=== PATIENT | female | born 1945 | race Caucasian/White ===

== ENCOUNTER 2019-03-24 08:35 | Day surgery (SDC) ==
--- NOTE | 2019-03-10 08:20 | EKG Report ---
Test Performed on : 03/10/2019 08:03:04 AM Test Reason : PAT Blood Pressure : / mmHG Vent. Rate : 084 BPM Atrial Rate : 084 BPM P-R Int : 146 ms QRS Dur : 086 ms QT Int : 382 ms P-R-T Axes : 077 076 074 degrees QTc Int : 451 ms Normal sinus rhythm. Normal ECG No previous ECGs available Confirmed by Jeffrey BECKFORD, Venancio Floyd ([id number]) on 03/10/2019 8:46:45 AM
[2019-03-10 08:41] LABS: URINE SOURCE CLEAN CATCH
[2019-03-10 09:45] LABS: HEMATOCRIT 48.1 % (37.0-47.0); HEMOGLOBIN 15.3 g/dL (12.0-16.0); MCV 88.4 FL (81-99); RBC 5.44 XMIL (4.2-5.4); WBC 12.36 X1000 (4.8-10.8)
[2019-03-10 09:46] LABS: BASO# 0.07 X1000 (0.0-0.2); BASO% 0.6 % (0.0-0.8); EOS# 0.31 X1000 (0.0-0.7); EOS% 2.5 % (0.0-10.0); IMM GRAN# 0.02 X1000 (0.0-0.04); IMM GRAN% 0.2 % (0.0-0.5); LYMPH# 3.74 X1000 (1.2-3.4); LYMPH% 30.3 % (20.5-51.1); MCH 28.1 PG (27-31); MCHC 31.8 g/dL (33-37); MONO# 0.68 X1000 (0.11-0.59); MONO% 5.5 % (1.7-9.3); MPV 10.8 FL (7.4-10.4); NEUT# 7.54 X1000 (1.4-6.5); NEUT% 60.9 % (42.2-75.2); PLT 299 X1000 (130-400); RDW 14.7 % (11.5-14.5)
[2019-03-10 09:50] LABS: BILIRUBIN URINE NEGATIVE (NEGATIVE); BLOOD URINE NEGATIVE (NEGATIVE); COLOR YELLOW; GLUCOSE URINE NEGATIVE (NEGATIVE); KETONE URINE TRACE mg/dL (NEGATIVE); LEUKOCYTES URINE NEGATIVE (NEGATIVE); NITRITE URINE NEGATIVE (NEGATIVE); PH URINE 5.5; PROTEIN URINE TRACE mg/dL (NEGATIVE); SP GRAVITY URINE 1.026; TURBIDITY URINE TURBID (CLEAR); UROBILINOGEN URINE 2 mg/dL (NORMAL)
[2019-03-10 09:54] LABS: INR 0.99; PROTIME 13.2 Seconds (11.0-16.0); UR EPITHELIAL CELLS >10 /HPF (<10); URINE BACTERIA NEGATIVE /HPF; URINE RBC <10 /HPF (<10); URINE WBC <10 /HPF (<10)
[2019-03-10 09:56] LABS: HEMOGLOBIN A1C 5.5 % (4.8-6.0)
[2019-03-10 10:17] LABS: AGAP 14; BUN 14 mg/dL (8-22); CHLORIDE 101 mmol/L (98-107); COSMO 285; CREATININE 0.9 mg/dL (0.5-0.9); ESTIMATED GFR > 60; GLUCOSE 116 mg/dL (70-104); POTASSIUM 3.7 mmol/L (3.5-5.1); SODIUM 142 mmol/L (136-145); TCO2 27 mmol/L (25-35)
[2019-03-24] MEDS ORDERED: ZOCOR PO SCH (09:00)
[2019-03-24] MEDS ORDERED: REGLAN ONE (09:24)
[2019-03-24] MEDS ORDERED: PEPCID ONE (09:24)
[2019-03-24] MEDS ORDERED: COLACE ONE (09:24)
[2019-03-24] MEDS ORDERED: KEFZOL 1 GM/D5W 1 GM/50 ML IVPB ONE (09:25)
[2019-03-24] MEDS ORDERED: CELEBREX ONE (09:25)
[2019-03-24] MEDS ORDERED: LYRICA ONE (09:25)
[2019-03-24] MEDS ORDERED: LR 1,000 ML ONE (09:25)
[2019-03-24] MEDS ORDERED: XYLOCAINE-MPF 2% ONE (09:32)
[2019-03-24] MEDS ORDERED: DECADRON ONE (09:32)
[2019-03-24] MEDS ORDERED: ROBINUL ONE (09:32)
[2019-03-24] MEDS ORDERED: ZOFRAN ONE (09:32)
[2019-03-24] MEDS ORDERED: DIPRIVAN 1% ONE (09:33)
[2019-03-24] MEDS ORDERED: OFIRMEV 1000 MG/ISOTONIC SOLN 1,000 MG/100 ML BOTTLE ONE (09:33)
[2019-03-24] MEDS ORDERED: FENTANYL ONE (09:33)
[2019-03-24] MEDS ORDERED: DURAMORPH ONE (10:51)
[2019-03-24] MEDS ORDERED: TORADOL ONE (10:51)
[2019-03-24] MEDS ORDERED: SODIUM CHLORIDE 0.9% ONE (10:52)
[2019-03-24] MEDS ORDERED: VANCOMYCIN ONE (10:52)
[2019-03-24] MEDS ORDERED: EXPAREL 1.3% ONE (10:52)
[2019-03-24] MEDS ORDERED: CYKLOKAPRON 1,000 MG/NS 2,000 MG/200 ML IVPB ONE (10:52)
[2019-03-24] MEDS ORDERED: SENSORCAINE 0.25%/EPI 1:200,000 ONE (10:52)
[2019-03-24 12:38] LABS: URINE SOURCE CATH
[2019-03-24 12:48] LABS: BILIRUBIN URINE NEGATIVE (NEGATIVE); BLOOD URINE NEGATIVE (NEGATIVE); COLOR YELLOW; GLUCOSE URINE NEGATIVE (NEGATIVE); KETONE URINE 10 mg/dL (NEGATIVE); LEUKOCYTES URINE NEGATIVE (NEGATIVE); NITRITE URINE NEGATIVE (NEGATIVE); PH URINE 5.5; PROTEIN URINE NEGATIVE (NEGATIVE); SP GRAVITY URINE 1.022; TURBIDITY URINE CLEAR (CLEAR); UROBILINOGEN URINE NORMAL (NORMAL)
[2019-03-24 12:49] LABS: UR EPITHELIAL CELLS <10 /HPF (<10); URINE BACTERIA NEGATIVE /HPF; URINE RBC <10 /HPF (<10); URINE WBC <10 /HPF (<10)
[2019-03-24] MEDS ORDERED: NS 1,000 ML ONE (13:42)
[2019-03-24] MEDS ORDERED: DILAUDID ONE (13:53)
--- NOTE | 2019-03-24 14:14 | Diag Imaging Result Doc PS360 ---
EXAM: KNEE 1-2 VIEWS-LEFT 03/24/2019 HISTORY: L TKA TECHNIQUE: Left knee two views COMMENT: There is a total knee arthroplasty. There is no evidence of acute fracture or other bony abnormality otherwise. IMPRESSION: Postsurgical changes. Electronically signed by Quentin Brito 03/24/2019 2:12 PM
[2019-03-24] MEDS ORDERED: OXY IR PO PRN ×2 (14:45)
[2019-03-24] MEDS ORDERED: ZOFRAN PO PRN (14:45)
[2019-03-24] MEDS ORDERED: NS 1,000 ML IV SCH (14:45)
[2019-03-24] MEDS ORDERED: MORPHINE IV PRN ×3 (14:45)
[2019-03-24] MEDS: ZOCOR PO SCH (19:57)
[2019-03-24] MEDS: PERIDEX MT SCH (19:58)
[2019-03-24] MEDS: KEFZOL 1 GM/D5W 1 GM/50 ML IVPB IV SCH (19:58)
--- NOTE | 2019-03-24 20:11 | OPERATIVE NOTE ---
PROCEDURE DATE: 03/24/2019 PREOPERATIVE DIAGNOSIS: Degenerative osteoarthritis of the left knee. POSTOPERATIVE DIAGNOSIS: Degenerative osteoarthritis of the left knee. PROCEDURE: Left total knee arthroplasty with DePuy Attune size 5 narrow posterior-stabilized femur, a size 5 tibial tray, 8 mm rotating platform tibial insert, 35 mm medialized anatomic patella. SURGEON: Fabricio Younger MD. BASE MANAGER: CHASE Price, who was necessary for proper retraction and manipulation of the extremity during the case, and improved efficiency. SECOND ASSISTANTS: CHASE Manjarrez, and Christoph Toledo RN. ANESTHESIA: General. INTRAVENOUS FLUIDS: 1600 mL of lactated Ringer's. ESTIMATED BLOOD LOSS: 30 mL. TOURNIQUET TIME: 85 minutes at 300 mmHg. COMPLICATIONS: None. INDICATION: The patient is a 73-year-old female with a chronic history of pain and discomfort of the left knee. X-rays revealed degenerative osteoarthritis. Recommendation to proceed with left total knee arthroplasty was offered. Risks and benefits of surgery explained, including the risk of anesthesia, , bleeding, infection, failure to relieve pain, postoperative stiffness, nerve injury, blood clots, and other imponderables. All questions were answered, and the patient and family wished to proceed with surgery. DETAILS OF OPERATION: Patient was taken to the operating room and placed supine on the operating table. Once adequate anesthesia was obtained, patient's left lower extremity was subsequently prepped and draped in usual sterile fashion. An Esmarch was used to exsanguinate the left lower extremity and tourniquet was inflated to 300 mmHg. A standard anterior incision was made with skin knife. Medial and lateral skin envelopes were developed. Standard medial parapatellar arthrotomy was then performed. Patella fat pad was excised. Retractors were then placed. Approximately 1 cm anterior to the PCL insertion, starting reamer was then passed. Intramedullary guide with a distal femoral cutting block was pinned in position. A distal femoral cut was then performed in standard fashion. A sizing block was then placed and measured to size 5. Corresponding pins were placed. A size 5 cutting block was then placed in position. Anterior, posterior, and chamfer cuts were then made. Attention was then turned to the proximal tibia. Using the extramedullary guide, the proximal tibia cutting block was pinned in position. Had good alignment confirmed with the alignment amaris. The proximal tibia was then resected. Medial and lateral menisci were excised. A curved osteotome was used to remove posterior osteophytes off the distal femur. A spacer block was then placed, and had good soft tissue balance in both flexion and extension. Attention was turned back to the proximal tibia where a size 5 tibial tray was the correct size. This was pinned in position. This was followed by a central reamer and a fin punch. A box cutting guide was then pinned on the distal femur. A box cut was then performed. A trial femoral component was then placed and 2 lug holes were drilled. The trial tibial insert was then placed and had good soft tissue balancing. The patella was everted and resected in standard fashion. The size 35 appeared to be the correct size. Corresponding holes were drilled. A size 35 mm patella was then placed and had good patellofemoral tracking. The trial components were then removed. Copious irrigation was then performed with pulsatile lavage, while vancomycin was mixed in cement on the back table. Sequential cementing was then performed, first with the tibial tray, and excess cement was removed with a [place]. Followed by the femoral component and excess cement was removed with a [place]. Followed by a trial tibial insert in full extension and axial loading was maintained while cement cured. The patella was cemented in standard fashion. Patella clamp was placed. Exparel was then placed in the deep soft tissue as well as the subcutaneous tissue. After the cement had cured, peripheral cement was removed with a small osteotome. An 8 mm rotating platform tibial insert appeared to be the correct size. The trial insert was removed. Exparel was placed in the deep posterior capsule. The wound was copiously irrigated with pulsatile lavage. The 8 mm rotating platform tibial insert was then placed. The knee was then carried through range of motion, and had good range of motion, good soft tissue balance, and good patellofemoral tracking. A 1-/8 Hemovac drain was placed and was not sewn in. Copious irrigation was then performed with antibiotic pulsatile lavage. Number 1 Vicryl was then used to repair the arthrotomy, followed by 2-0 Vicryl to repair the subcutaneous tissue and skin demario. Adaptic, sterile 4 x 4's, Webril, cryo unit, Rubens wrap were applied to the left lower extremity. Patient tolerated the procedure well and was transferred to the recovery room in stable condition. cc: Fabricio Younger MD
[2019-03-25] MEDS: ZOCOR PO SCH (00:21)
[2019-03-25] MEDS: PERIDEX MT SCH ×2 (00:21→10:04)
[2019-03-25] MEDS ORDERED: PRILOSEC PO SCH (07:00)
--- NOTE | 2019-03-25 07:05 | ORTHOPAEDICS PROGRESS NOTE ---
DATE: 03/25/2019 SUBJECTIVE: The patient is a pleasant, 73-year-old female who is 1 day status post left total knee arthroplasty. She is currently resting comfortably. She has no complaints this morning. OBJECTIVE: On physical exam of the patient's left lower extremity, her wound looks good. There are no signs or symptoms of infection. Her calf is soft. She has active dorsiflexion and plantar flexion. She is neurovascularly intact distally. Her labs are pending. IMPRESSION: Postoperative day #1 status post left total knee arthroplasty. PLAN: At this point, we will plan on discharging her home after physical therapy. We will arrange for outpatient physical therapy. Patient will follow up in the office on 04/05/2019. cc: Fabricio Younger MD
[2019-03-25 07:12] LABS: HEMATOCRIT 39.1 % (37.0-47.0); HEMOGLOBIN 12.4 g/dL (12.0-16.0)
[2019-03-25 07:29] LABS: AGAP 10; BUN 16 mg/dL (8-22); CALCIUM 8.1 mg/dL (8.8-10.2); CHLORIDE 106 mmol/L (98-107); COSMO 281; CREATININE 0.7 mg/dL (0.5-0.9); ESTIMATED GFR > 60; GLUCOSE 114 mg/dL (70-104); POTASSIUM 4.3 mmol/L (3.5-5.1); SODIUM 140 mmol/L (136-145); TCO2 24 mmol/L (25-35)
[2019-03-25 07:55] VITALS: BP 136/60
[2019-03-25] MEDS: KEFZOL 1 GM/D5W 1 GM/50 ML IVPB IV SCH (08:06)
[2019-03-25] MEDS ORDERED: ASPIRIN PO SCH (09:00)
== END 2019-03-25 11:45 | disposition home or self-care (01) ==
LOC: OR 08:35 → 4N 08:35 → OR 03-25 11:45
PROVIDERS: ATTEND Orthopaedic Surgery Adult Reconstructive Orthopaedic Surgery